=== PATIENT | female | born 1965 | race Caucasian/White ===

== ENCOUNTER 2022-06-29 08:16 | Outpatient (CLI) | payer BC, MEDICARE, SELFPAY ==
[2022-06-29 14:24] LABS: Chloride* 105 mmol/L (96-114); Potassium* 4.8 mmol/L (3.6-5.1); Sodium* 138 mmol/L (135-149)
[2022-06-29 14:26] LABS: Cholesterol* 175 mg/dL (90-199)
[2022-06-29 14:27] LABS: Blood Urea Nitrogen* 15 mg/dL (7-30); Calcium* 8.8 mg/dL (8.4-10.6); Carbon Dioxide* 25 mmol/L (20-32); Estimated Glomerular Filt Rate 66 ml/min; Glucose* 108 mg/dL (60-115); Triglycerides* 90 mg/dL (40-149)
[2022-06-29 14:28] LABS: HDL Cholesterol* 48 mg/dL (>=50); LDL Cholesterol Calculated 109 mg/dL (<100)
[2022-07-01 10:29] LABS: Vitamin D 25 Hydroxy* 92 ng/mL (30-80)
[2022-07-01 11:03] LABS: Vitamin B12* 321 pg/mL (243-894)
== END 2022-06-29 08:17 | disposition home or self-care (01) ==
LOC: LKVLAB 08:16
PROVIDERS: PCP Family Medicine; Visit Provider Family Medicine
DX: Z00.00 Encounter for general adult medical examination without abnormal findings (principal); I10 Essential (primary) hypertension; R10.9 Unspecified abdominal pain; N95.0 Postmenopausal bleeding; F41.9 Anxiety disorder, unspecified; Z13.6 Encounter for screening for cardiovascular disorders
CPT/HCPCS: 36415; 80048; 80061; 82306; 82607; 84443

== ENCOUNTER 2023-11-22 08:13 | Outpatient (CLI) | payer OTHER, SELFPAY | END 2023-11-22 08:14 | disposition home or self-care (01) | LOC: NFLDREF 11-23 07:08 | PROVIDERS: PCP Family Medicine; Referring Provider Family Medicine; Visit Provider Family Medicine | DX: I10 Essential (primary) hypertension (principal); Z79.899 Other long term (current) drug therapy; E78.00 Pure hypercholesterolemia, unspecified | CPT/HCPCS: 80053; 80061 ==

== ENCOUNTER 2025-02-12 13:13 | Outpatient (CLI) | payer BC, SELFPAY | END 2025-02-12 13:14 | disposition home or self-care (01) | LOC: LKVREF 13:13 | PROVIDERS: PCP Family Medicine; Visit Provider Family Medicine | DX: G62.9 Polyneuropathy, unspecified (principal); I10 Essential (primary) hypertension; F41.8 Other specified anxiety disorders; Z79.899 Other long term (current) drug therapy | CPT/HCPCS: 80048; 80061; 82607; 84443 ==

== ENCOUNTER 2025-02-28 07:10 | Outpatient (CLI) | payer BC, SELFPAY ==
--- NOTE | 2025-02-28 07:15 | CRLHL7_ITS ---
For Patients: As a result of the Century Cures Act, medical imaging exams and procedure reports are released immediately into your electronic medical record. You may view this report before your referring provider. If you have questions, please contact your health care provider. INDICATION: Pelvic pain right side COMPARISON: 05/01/2021 TECHNIQUE: 2D haley scale and color Doppler images were acquired of the pelvis using a transabdominal and transvaginal approach. FINDINGS: Sonographic images demonstrate a normal size and smooth outer contour of the uterus. Uterus measures 6.5 cm in length by 2.2 cm in AP diameter by 3.1 cm in transverse dimension. The myometrium has a normal uniform echotexture. The endometrial lining measures 5.5 mm in composite thickness. Endometrium is heterogeneous with hyperechoic foci. The right ovary is not visualized and the left ovary measures 1.2 x 0.6 x 0.7 cm. The left ovary demonstrates normal arterial and venous blood flow on color Doppler analysis. There are no suspicious fluid collections within the cul-de-sac. IMPRESSION: Heterogeneity of the endometrium which measures 5.5 millimeters. No endometrial fluid. Dictated by Oskar Bolanos MD @ 02/28/2025 9:11:20 AM (Electronically Signed)
== END 2025-02-28 07:11 | disposition home or self-care (01) ==
LOC: US 07:11
PROVIDERS: PCP Family Medicine; Visit Provider Family Medicine
DX: R10.2 Pelvic and perineal pain (principal); R93.89 Abnormal findings on diagnostic imaging of other specified body structures
CPT/HCPCS: 76830; 76856; 93976

== ENCOUNTER 2025-05-30 15:13 | Outpatient (CLI) | payer BC, SELFPAY ==
--- NOTE | 2025-05-30 15:40 | CRLHL7_ITS ---
For Patients: As a result of the Century Cures Act, medical imaging exams and procedure reports are released immediately into your electronic medical record. You may view this report before your referring provider. If you have questions, please contact your health care provider. INDICATION: BILATERAL SCREENING MAMMOGRAM, ASYMPTOMATIC 60 Y/O FEMALE COMPARISON: 05/01/2021, 05/28/2019, 03/15/2018 TECHNIQUE: Digital mammogram in CC and MLO projections including computer-aided detection (CAD) and tomosynthesis. BREAST COMPOSITION: There are scattered areas of fibroglandular density. FINDINGS: No suspicious findings. ASSESSMENT: BI-RADS 1 Negative RECOMMENDATION: Annual screening mammogram. A lay language report of this examination will be provided to the patient. Dictated by: Oskar Bolanos MD @ 05/31/2025 10:04:10 (Electronically Signed)
== END 2025-05-30 15:14 | disposition home or self-care (01) ==
LOC: MAMMO 15:14
PROVIDERS: PCP Family Medicine; Visit Provider Family Medicine
DX: Z12.31 Encounter for screening mammogram for malignant neoplasm of breast (principal)
CPT/HCPCS: 77063; 77067